=== PATIENT | female | born 1955 | race Asian ===

== ENCOUNTER 2021-05-03 21:07 | Emergency (ER) | payer OTHER ==
[~2021-05-03] VITALS: Ht 160 cm; Wt 84.8 kg
[2021-05-03 21:07] VITALS: BP 132/66; TEMP 99.1
[2021-05-03 22:00] LABS: PLATELET COUNT 338 K/uL (152-353)
[2021-05-03 22:08] LABS: POTASSIUM 4.8 mmol/L (3.6-5.2)
[2021-05-04] MEDS ORDERED: LIPITOR20 MG PO (00:36)
[2021-05-04] MEDS ORDERED: HYDR25TA60 PO (00:37)
[2021-05-04] MEDS ORDERED: INSUINJP SC ×2 (00:39→00:40)
[2021-05-04] MEDS ORDERED: COZAAR25 MG PO (00:42)
[2021-05-04] MEDS ORDERED: METO-837 PO (00:43)
[2021-05-04] MEDS ORDERED: OMEPRAZOLE DR20 MG PO (00:44)
[2021-05-04] MEDS ORDERED: QUET100T2 PO (00:46)
[2021-05-04] MEDS ORDERED: QUETIAPINE50 MG PO (01:00)
[2021-05-04] MEDS ORDERED: RISPERDAL IM ×2 (01:02→01:04)
[2021-05-04] MEDS ORDERED: TRAZ50TA36 PO (01:05)
[2021-05-04] MEDS ORDERED: GEODON60 MG PO (01:06)
[2021-05-04] MEDS ORDERED: MAGN400T4 PO (01:07)
[2021-05-04] MEDS ORDERED: RISP2TAB2 PO (01:09)
[2021-05-04] MEDS ORDERED: NOVOLOG PE100 UNIT/M SC (01:11)
[2021-05-04] MEDS ORDERED: HALO5INJ3 IM (01:17)
== END 2021-05-03 22:55 | disposition other institution (70) ==
LOC: ED 21:07
PROVIDERS: Emergency Medicine
DX: F28 Other psychotic disorder not due to a substance or known physiological condition (principal); F20.89 Other schizophrenia; Z11.52 Encounter for screening for COVID-19; Z04.6 Encounter for general psychiatric examination, requested by authority
CPT/HCPCS: 36415; 80053; 85027; 87635; 93005; 99283; J2060; J3486; U0003